=== PATIENT | female | born 1985 | race American Indian/Alaskan Native ===

== ENCOUNTER 2019-09-14 20:14 | Emergency (ER) | payer SELFPAY ==
[2019-09-14 21:44] VITALS: BP 117/78
--- NOTE | 2019-09-14 21:47 | Event Note ---
ED Screening Note ED Screening Note: two days ago began having cold symptoms general weakness fatigue generalized body aches +nausea +fever +cough with sputum production no vomiting +diarrhea PMHx none allergy: bactrim LNMP: early September did not take anything for her temp ibuprofen given
[2019-09-14] MEDS ORDERED: IBUPROFEN 600 MG TAB PO ONE ×2 (21:49→22:00)
--- NOTE | 2019-09-14 21:49 | Emergency Department Report ---
- General Chief Complaint: Dizziness Stated Complaint: DIZZINESS/COUGH/FATIGUE Time Seen by Provider: 09/14/19 21:42 Source: patient Mode of arrival: Ambulatory Limitations: No Limitations - History of Present Illness Initial Comments: pt is a 34 yo female who presents with two days ago of cold/flu like symptoms. she has associated general weakness, fatigue, generalized body aches nausea, fever, cough with mucus, couple episodes of vomiting, diarrhea. PMHx none. allergy: bactrim. LNMP: early September. did not take anything for her temp. - Related Data Previous Rx's Medication Instructions Recorded Last Taken Type Oseltamivir [Tamiflu] 75 mg PO BID 5 Days #10 cap 09/14/19 Unknown Rx Allergies Allergy/AdvReac Type Severity Reaction Status Date / Time sulfamethoxazole Allergy Itching Verified 09/14/19 20:30 [From Bactrim] trimethoprim [From Bactrim] Allergy Itching Verified 09/14/19 20:30 ED Review of Systems ROS: Stated complaint: DIZZINESS/COUGH/FATIGUE Other details as noted in HPI Comment: All other systems reviewed and negative ED Past Medical Hx - Past Medical History Previous Medical History?: No - Surgical History Past Surgical History?: Yes Additional Surgical History: Left thigh. - Social History Smoking Status: Never Smoker Substance Use Type: None - Medications Home Medications: Home Medications Medication Instructions Recorded Confirmed Last Taken Type Oseltamivir [Tamiflu] 75 mg PO BID 5 Days #10 cap 09/14/19 Unknown Rx ED Physical Exam - General Limitations: No Limitations General appearance: alert, in no apparent distress - Head Head exam: Present: atraumatic, normocephalic - Eye Eye exam: Present: normal appearance - ENT ENT exam: Present: mucous membranes moist - Respiratory Respiratory exam: Present: normal lung sounds bilaterally. Absent: respiratory distress, wheezes, rales, rhonchi, stridor, chest wall tenderness, accessory muscle use, decreased breath sounds, prolonged expiratory - Cardiovascular Cardiovascular Exam: Present: regular rate, normal rhythm, normal heart sounds. Absent: systolic murmur, diastolic murmur, rubs, gallop - Neurological Exam Neurological exam: Present: alert, oriented X3 - Psychiatric Psychiatric exam: Present: normal affect, normal mood - Skin Skin exam: Present: warm, dry, intact ED Course Vital Signs 09/14/19 09/14/19 09/14/19 20:23 21:42 22:13 Temperature 100.6 F H 100.6 F H Pulse Rate 113 H 104 H Respiratory 18 18 18 Rate Blood Pressure 112/78 117/78 O2 Sat by Pulse 100 100 Oximetry 09/14/19 22:20 Temperature 99.4 F Pulse Rate 94 H Respiratory 18 Rate Blood Pressure O2 Sat by Pulse 99 Oximetry ED Medical Decision Making - Lab Data Vital Signs 09/14/19 09/14/19 09/14/19 20:23 21:42 22:13 Temperature 100.6 F H 100.6 F H Pulse Rate 113 H 104 H Respiratory 18 18 18 Rate Blood Pressure 112/78 117/78 O2 Sat by Pulse 100 100 Oximetry 09/14/19 22:20 Temperature 99.4 F Pulse Rate 94 H Respiratory 18 Rate Blood Pressure O2 Sat by Pulse 99 Oximetry - Medical Decision Making pt is a 34 yo female who presents with two days ago of cold/flu like symptoms. she has associated general weakness, fatigue, generalized body aches nausea, fever, cough with mucus, couple episodes of vomiting, diarrhea. PMHx none. allergy: bactrim. LNMP: early September. did not take anything for her temp. initial vitals with elevated temp and HR which improved upon ibuprofen administration. normal oropharynx, normal TMs and canals, normal breath sounds bilaterally, no w/r/r. pt has clinical s/sx of influenza. she is within the 48 hour range for tamiflu. advsied pt to please take medication as prescribed. increase your fluid intake over the next several days. may alternate tylenol then ibuprofen every 4 hours as needed for a fever. may use over the counter cough/cold medication. follow up with a primary care doctor in the next 2-3 days for reexamination. return to the emergency room for any new or worsening symptoms. - Differential Diagnosis influenza, URI, PNA, viral syndrome, otitis media, pharyngitis Critical care attestation.: If time is entered above; I have spent that time in minutes in the direct care of this critically ill patient, excluding procedure time. ED Disposition Clinical Impression: Influenza Disposition: DC-01 TO HOME OR SELFCARE Is pt being admited?: No Does the pt Need Aspirin: No Condition: Stable Instructions: Influenza (ED) Additional Instructions: please take medication as prescribed. increase your fluid intake over the next several days. may alternate tylenol then ibuprofen every 4 hours as needed for a fever. may use over the counter cough/cold medication. follow up with a primary care doctor in the next 2-3 days for reexamination. return to the emergency room for any new or worsening symptoms. Prescriptions: Oseltamivir [Tamiflu] 75 mg PO BID 5 Days #10 cap Referrals: BEBA RASCON MD [Staff Physician] - 2-3 Days [facility] [Outside] - 2-3 Days [facility] [Provider Group] - 2-3 Days Forms: Work/School Release Form(ED) Time of Disposition: 22:07 Print Language: CENTRAL AFRICAN
== END 2019-09-14 22:23 | disposition home or self-care (01) ==
LOC: ED 20:14
DX: J11.1 Influenza due to unidentified influenza virus with other respiratory manifestations (principal); Z88.2 Allergy status to sulfonamides; Z98.890 Other specified postprocedural states
CPT/HCPCS: 99282